=== PATIENT | female | born 1980 | race Caucasian/White ===

== ENCOUNTER → 2018-05-18 | Outpatient (CLI) | payer BC ==
[2018-05-18 15:18] LABS: EOS % 0.6 % (1.0-5.0); HEMATOCRIT 40.1 % (37.0-47.0); HEMOGLOBIN 13.2 g/dL (12.5-16.0); LYMPH# 2.1 (1.50-4.00); MEAN CELL VOLUME 88 fl (78-100); MEAN CORPUSCULAR HEMOGLOBIN 29 pg (27-31); MEAN CORPUSCULAR HGB CONC 33 g/dL (33-37); MEAN PLATELET VOLUME 9.5 fl (7.4-10.4); MONO # 0.4 (0.20-0.80); NEU # 3.7 (1.40-6.50); PLATELET COUNT 241 K/mm3 (130-400); RED BLOOD COUNT 4.58 M/mm3 (4.10-5.30); RED CELL DISTRIBUTION WIDTH 12.4 % (11.5-14.5); WHITE BLOOD COUNT 6.2 K/mm3 (4.8-10.8)
[2018-05-18 15:33] LABS: ALBUMIN 4.4 g/dL (3.5-5.0); CALCIUM 9.7 mg/dL (8.4-10.2); POTASSIUM 3.8 mmol/L (3.6-5.0); TOTAL BILIRUBIN 0.2 mg/dL (0.2-1.3); TOTAL PROTEIN 7.7 g/dL (6.3-8.2)
== END ==
LOC: LAB 14:50
PROVIDERS: Physician Assistant
DX: R53.83 Other fatigue (principal); D49.9 Neoplasm of unspecified behavior of unspecified site

== ENCOUNTER → 2019-03-29 | Outpatient (CLI) | payer OTHER | LOC: RAD 15:04 | DX: S89.92XA Unspecified injury of left lower leg, initial encounter (principal); M25.462 Effusion, left knee ==

== ENCOUNTER → 2020-11-20 | Outpatient (CLI) | payer BC ==
[2020-11-20 14:51] LABS: BASO # 0.03 (0.02-0.10); EOS # 0.03 (0.04-0.40); EOS % 0.6 % (1.0-5.0); HEMATOCRIT 39.6 % (37.0-47.0); HEMOGLOBIN 13.1 g/dL (12.5-16.0); LYMPH# 2.08 (1.50-4.00); MEAN CELL VOLUME 88 fl (78-100); MEAN CORPUSCULAR HEMOGLOBIN 29 pg (27-31); MEAN CORPUSCULAR HGB CONC 33 g/dL (33-37); MONO # 0.29 (0.20-0.80); NEU # 2.89 (1.40-6.50); PLATELET COUNT 223 K/mm3 (130-400); RED BLOOD COUNT 4.51 M/mm3 (4.10-5.30); RED CELL DISTRIBUTION WIDTH 12.1 % (11.5-14.5); WHITE BLOOD COUNT 5.3 K/mm3 (4.8-10.8)
[2020-11-20 15:05] LABS: ALBUMIN 4.4 g/dL (3.5-5.0); POTASSIUM 3.7 mmol/L (3.5-5.1)
[2020-11-20 15:06] LABS: CALCIUM 9.1 mg/dL (8.3-10.5)
[2020-11-20 15:08] LABS: TOTAL PROTEIN 7.3 g/dL (6.4-8.3)
[2020-11-20 15:09] LABS: TOTAL BILIRUBIN 0.4 mg/dL (0.2-1.2)
[2020-11-20 22:49] LABS: LUTENIZING HORMONE 11.2 mIU/mL (()); PROGESTERONE 2.3 ng/mL (())
== END ==
LOC: LAB 14:36
PROVIDERS: Physician Assistant
DX: Z00.00 Encounter for general adult medical examination without abnormal findings (principal); E78.5 Hyperlipidemia, unspecified; R63.5 Abnormal weight gain; K90.9 Intestinal malabsorption, unspecified; L68.0 Hirsutism; N92.6 Irregular menstruation, unspecified

== ENCOUNTER → 2022-04-26 | Outpatient (CLI) | payer BC, OTHER ==
[2022-04-26 16:29] LABS: BASO # 0.03 K/mm3 (0.02-0.10); EOS # 0.03 K/mm3 (0.04-0.40); EOS % 0.6 % (1.0-5.0); HEMATOCRIT 37.9 % (37.0-47.0); HEMOGLOBIN 12.6 g/dL (12.5-16.0); LYMPH# 2.19 K/mm3 (1.50-4.00); MEAN CELL VOLUME 89 fl (78-100); MEAN CORPUSCULAR HEMOGLOBIN 30 pg (27-31); MEAN CORPUSCULAR HGB CONC 33 g/dL (33-37); MEAN PLATELET VOLUME 8.9 fl (7.4-10.4); MONO # 0.26 K/mm3 (0.20-0.80); NEU # 2.59 K/mm3 (1.40-6.50); PLATELET COUNT 260 K/mm3 (130-400); RED BLOOD COUNT 4.25 M/mm3 (4.10-5.30); RED CELL DISTRIBUTION WIDTH 12.4 % (11.5-14.5); WHITE BLOOD COUNT 5.1 K/mm3 (4.8-10.8)
[2022-04-26 16:48] LABS: ALBUMIN 4.3 g/dL (3.5-5.0); POTASSIUM 3.5 mmol/L (3.5-5.1)
[2022-04-26 16:49] LABS: CALCIUM 9.1 mg/dL (8.3-10.5)
[2022-04-26 16:50] LABS: TOTAL PROTEIN 7.1 g/dL (6.4-8.3)
[2022-04-26 16:52] LABS: TOTAL BILIRUBIN 0.3 mg/dL (0.2-1.2)
[2022-04-26 16:57] LABS: MAGNESIUM 2.35 mg/dL (1.60-2.60)
== END ==
LOC: LAB 15:56
PROVIDERS: Physician Assistant
DX: Z00.00 Encounter for general adult medical examination without abnormal findings (principal); C44.91 Basal cell carcinoma of skin, unspecified; Z23 Encounter for immunization; Z13.220 Encounter for screening for lipoid disorders; Z13.29 Encounter for screening for other suspected endocrine disorder; K90.9 Intestinal malabsorption, unspecified; R22.0 Localized swelling, mass and lump, head; R25.2 Cramp and spasm; G44.89 Other headache syndrome